=== PATIENT | female | born 1925 | race Caucasian/White ===

== ENCOUNTER 2015-12-02 13:51 | Outpatient (RCR) | payer MEDICARE, MEDICAID ==
[2015-12-18] MEDS ORDERED: SIMV40TA PO (12:49)
[2015-12-18] MEDS ORDERED: OMEP20TA7 PO (12:49)
[2015-12-18] MEDS ORDERED: POLY17PO6 PO (12:49)
[2015-12-18] MEDS ORDERED: METO-351 PO (12:49)
[2015-12-18] MEDS ORDERED: NAPR220T66 PO (12:49)
[2015-12-18] MEDS ORDERED: ASPI-983 PO (12:49)
[2015-12-18] MEDS ORDERED: ACET325T38 PO (12:49)
[2015-12-18] MEDS ORDERED: FLDR.1T PO (12:49)
[2015-12-18] MEDS ORDERED: SERT50TA2 PO (12:49)
[2015-12-19] MEDS ORDERED: APIX2.5T PO (07:10)
[2015-12-19] MEDS ORDERED: DIGO125T18 PO (07:10)
[2015-12-19] MEDS ORDERED: MAGN400T6 PO (13:51)
[2016-01-20] MEDS ORDERED: HYDR-757 PO (12:08)
[2016-01-20] MEDS ORDERED: CEFT1VIA58 IM (12:08)
[2016-02-21] MEDS ORDERED: TRAM50TA2 PO (10:22)
[2016-02-21] MEDS ORDERED: CARB15DR74 OU (10:22)
[2016-02-21] MEDS ORDERED: LACT-157 PO (10:22)
[2016-02-21] MEDS ORDERED: DONE5TAB30 PO (10:22)
[2016-02-21] MEDS ORDERED: MAGN400T6 PO (10:22)
[2016-02-21] MEDS ORDERED: DIGO125T PO (10:22)
[2016-02-21] MEDS ORDERED: CHLO500T2 PO (10:22)
[2016-02-21] MEDS ORDERED: POTA10TA6 PO (10:22)
[2016-02-21] MEDS ORDERED: APIX2.5T PO (10:22)
[2016-02-25] MEDS ORDERED: CHLO500T2 PO (08:56)
[2016-02-25] MEDS ORDERED: METO-270 PO (08:56)
[2016-02-25] MEDS ORDERED: HYDR-3812 PO (08:56)
[2016-02-25] MEDS ORDERED: LACT20SO2 PO (08:56)
[2016-02-25] MEDS ORDERED: TRAM50TA2 PO (08:56)
== END 2016-03-01 | disposition home or self-care (01) ==
LOC: CARD 13:51
PROVIDERS: ATTEND Internal Medicine
DX: I95.1 Orthostatic hypotension (principal); R55 Syncope and collapse
CPT/HCPCS: 93225; 93226

== ENCOUNTER 2016-03-09 14:47 | Emergency (ER) | payer MEDICAID, MEDICARE ==
[~2016-03-09] VITALS: Ht 170.2 cm; Wt 68.9 kg
[~2016-03-09 14:47] MED LIST: ACET325T38 PO; APIX2.5T PO; ASPI-983 PO; CARB15DR74 OU; CEFT1VIA58 IM; CHLO500T2 PO; DIGO125T PO; DIGO125T18 PO; DONE5TAB30 PO; FLDR.1T PO; HYDR-3812 PO; HYDR-757 PO; LACT-157 PO; LACT20SO2 PO; MAGN400T6 PO; METO-270 PO; METO-351 PO; NAPR220T66 PO; OMEP20TA7 PO; POLY17PO6 PO; POTA10TA6 PO; SERT50TA2 PO; SIMV40TA PO; TRAM50TA2 PO
--- OUTSIDE RECORDS SUMMARY | 2016-03-09 14:53 | XMS REPORT | Continuity of Care Document ---
Author Author [facility] Organization [facility] Address Unknown Phone Unavailable Care Team Providers Care Housekeeping Laundry Worker Name Role Phone ZEYNEP COTA MD PCP Insurance Providers Payer Name Policy Number Subscriber Name Relationship Wps Medicare [id number] Mark Warren 18 Self / Same As Patient Medicaid [place] [id number] Mark Warren 18 Self / Same As Patient Advance Directives Directive Response Recorded Date/Time Advance Directives Yes 02/20/16 5:18pm Health Care Power of Mfg [employer] DL WARREN (SON) 02/20/16 5:18pm Organ Donor No 02/20/16 5:18pm Resuscitation Status Full Code 02/20/16 5:18pm Chief Complaint and Reason for Visit Chief Complaint L HIP FX Reason for Visit Urinary tract infection Problems Active Problems Medical Problem Onset Date Status Encephalopathy acute Unknown Acute Fracture of left hip Unknown Acute Syncope Unknown Acute Urinary tract infection Unknown Acute Medications Current Home Medications Medication Dose Units Route Directions Days/Qty Instructions Start Date Polyethylene Glycol 3350 17 Gm 17 Gm Oral Daily 12/18/15 Acetaminophen 325 Mg 650 Mg Oral Every 4HRS as needed for Mild Pain/Temp TAKES 2 (325MG) TABLETS 12/18/15 Naproxen Sodium 220 Mg 220 Mg Oral Twice A Day as needed for Pain Fludrocortisone Acetate 0.1 Mg 0.1 Mg Oral Daily 12/18/15 Omeprazole 20 Mg 20 Mg Oral Daily 12/18/15 Donepezil Hcl 5 Mg 5 Mg Oral Daily 02/21/16 Lactose-Reduced Food 237 Ml 237 Ml Oral Three Times A Day 02/21/16 Carboxymethylcellulose Sodium 15 Ml 2 Drops Each Eye Twice A Day Apixaban 2.5 Mg 2.5 Mg Oral Twice A Day 02/21/16 Digoxin 125 Mcg 125 Mcg Oral Daily 02/21/16 Magnesium Oxide 400 Mg 400 Mg Oral Twice A Day 02/21/16 Potassium Chloride 10 Meq 10 Meq Oral Daily 02/21/16 Tramadol Hcl 50 Mg 50 Mg Oral Every 6 Hours as needed for Severe Pain 30 02/25/16 Chlorzoxazone 500 Mg 250 Mg Oral Three Times A Day 30 TAKES 1/2 (500MG) TABLET 02/25/16 Metoprolol Succinate 25 Mg 25 Mg Oral Twice A Day 30 Days 02/25/16 Hydrocodone/Acetaminophen 1 Each 1 Tab Oral Every 4HRS as needed for Moderate Pain 30 02/25/16 Lactulose 20 Gm/30 Ml 10 Gm Oral Twice A Day 30 Days 02/25/16 Past Home Medications Medication Directions Ordered Status Sertraline Hcl 50 Mg Tablet, 50 Mg Oral Daily 12/18/15 Discontinued Simvastatin 40 Mg Tablet, 40 Mg Oral Bedtime 12/18/15 Discontinued Aspirin 81 Mg Tablet.dr, 81 Mg Oral Daily 12/18/15 Discontinued Metoprolol Succinate 25 Mg Tab.er.24h, 12.5 Mg Oral Bedtime 12/18/15 Discontinued Digoxin 125 Mcg Tablet, 0.125 Mg Oral Daily 12/19/15 Discontinued Apixaban 2.5 Mg Tablet, 2.5 Mg Oral Twice A Day 12/19/15 Discontinued Magnesium Oxide 400 Mg Tablet, 400 Mg Oral Twice Daily After Meals 12/19/15 Discontinued Hydrocodone/Acetaminophen 1 Each Tablet, 0.5 Each Oral Every 6 Hours for Back 01/20/16 Discontinued Ceftriaxone Sodium 1 Gm Vial, 1 Gm Intramusc Daily 01/20/16 Discontinued Tramadol Hcl 50 Mg Tablet, 50 Mg Oral Every 6 Hours as needed for Severe Pain 02/21/16 Discontinued Chlorzoxazone 500 Mg Tablet, 250 Mg Oral Three Times A Day 02/21/16 Discontinued Social History Social History Problem Response Recorded Date/Time Alcohol Use Denies Use 02/20/2016 5:19pm Recreational Drug Use No 02/20/2016 5:19pm Recent Foreign Travel No 02/20/2016 5:25pm Recent Infectious Disease Exposure No 02/20/2016 5:25pm Smoking Status Never a Smoker 02/20/2016 5:21pm Type Used Cigarettes 01/20/2016 10:52am Recent Hopitalizations Y ED D/T FALLS 02/20/2016 5:19pm Query Response Start Date Stop Date Smoking Status Never a Smoker Hospital Discharge Instructions Patient Instructions Physician Instructions Patient Problems: Left hip fracture 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 Care Home Facility Order: Nursing Services, Reach Truck Operator-Evaluate & Treat, Physical Therapy-Evaluate & Treat, Speech Language-Evaluate & Treat Discharge Diet: Cardiac Diet Daily Activity as Tolerated: Yes Dorothea Law Feb 25, 2016 08:57 Care Plan Goal:: Strengthen Patient Problems: Left hip fractureDementia with behavior problems requiring sitterFallsAtrial fibrillation Plan of Care Discharge Date 02/25/16 10:20am Disposition 04 XFER ICF Instructions/Education Provided Atrial Fibrillation (DC) Prescriptions See Medication Section Care Plan and Goals See Discharge Instructions Section Functional Status Query Response Date Recorded Patient Orientation Person Confused Situation February 24, 2016 11:26am Patient Orientation Person Confused February 25, 2016 10:40am Comprehension Ability Understands Concepts February 25, 2016 8:20am Allergies, Adverse Reactions, Alerts Allergen Type Severity Reaction Status Last Updated Levofloxacin Allergy Unknown Active 02/20/16 Immunizations No immunization records. Vital Signs Acute Vital Signs Vital Response Date/Time Temperature (Fahrenheit) 96.4 degrees F (97.6 - 99.5) 02/25/2016 10:35am Temperature (Calculated Celsius) 35.69502 degrees C (36.4 - 37.5) 02/25/2016 8:09am Temperature Source Tympanic 02/25/2016 10:35am Pulse Rate (adult) 68 bpm (60 - 90) 02/25/2016 10:35am Respiratory Rate 20 bpm (12 - 24) 02/25/2016 10:35am O2 Sat by Pulse Oximetry 98 % (88 - 100) 02/25/2016 10:35am Blood Pressure 167/73 mm Hg 02/25/2016 10:35am Blood Pressure Mean 104 mm Hg 02/25/2016 8:09am Pain Numeric Pain Scale 3 02/25/2016 10:35am Height (Feet) 5 feet 02/20/2016 5:25pm Height (Inches) 6.00 inches 02/20/2016 5:25pm Height (Calculated Centimeters) 167.139777 cm 02/20/2016 5:25pm Weight (Pounds) 145 pounds 02/20/2016 5:25pm Weight (Ounces) 0.0 oz 02/20/2016 5:25pm Weight (Calculated Grams) 15593.89 gm 02/20/2016 5:25pm Weight (Calculated Kilograms) 65.123665 kilograms 02/20/2016 5:25pm Calculated BMI 23.4 02/20/2016 5:25pm Results Pending Laboratory Results Test Name Collection Date/Time Procedures Procedure Status Date Provider(s) Bipolar hemiarthroplasty of hip Completed 02/21/16 RYAN QUINTANA DO 48 hour Holter monitoring Completed 12/02/15 ANDREW SCHMID MD 48 hour Holter monitoring Completed 12/02/15 ANDREW SCHMID MD Tracing only of electrocardiogram Completed 02/20/16 DOROTHEA LAW DO Tracing only of electrocardiogram Completed 02/21/16 Mario CROUCH MD Encounters Encounter Location Arrival/Admit Date Discharge/Depart Date Attending Provider Discharged Inpatient [facility] 02/20/16 4:45pm 10:20am DOROTHEA LAW DO Registered Clinic [facility] 02/20/16 2:22pm ISAURO XIONG Registered Clinic [facility] 02/07/16 12:45pm ISAURO XIONG Discharged Recurring [facility] 12/02/15 1:51pm 11:59pm ANDREW SCHMID MD Recent Diagnosis Urinary tract infection
--- NOTE | 2016-03-09 16:48 | ED Fall/Injury ---
General Chief Complaint: Trauma-Non Activation Stated Complaint: CT Nursing Triage Note: Staff from [facility] report here for CT. Pt states fell on Wednesday and today. Call to staff at [facility] that state Isauro requests pt eval in ER for 2nd fall in week. No pain reported. Pt is on Eliquis Source: patient Exam Limitations: other (dementia) History of Present Illness Time seen by provider: 16:48 Initial Comments 89-year-old female patient presents to the emergency department at the request of this examiner due to 2 falls in the last 36-48 hours. Staff reports the fall today was unwitnessed and found patient on the floor. Unsure if patient had hit head as patient has dementia. Patient is on anticoagulants. Patient does have known T12 compression fracture and had recent left hip surgery for hip fracture. Patient is a approximately 2 weeks postop. Location Injury Occurred: NH Occurred: other (fell yesterday and today.) Injuries/Pain Location: no injury Context: unknown Loss of Consciousness: unsure Allergies and Home Medications Allergies Coded Allergies: levofloxacin (Verified Allergy, Unknown, 02/20/16) Home Medications Acetaminophen 325 Mg Tablet 650 MG PO Q4H PRN PRN MILD PAIN/TEMP (Reported) TAKES 2 (325MG) TABLETS Apixaban 2.5 Mg Tablet 2.5 MG PO BID (Reported) Carboxymethylcellulose Sodium 15 Ml Drops 2 DROPS OU BID (Reported) Chlorzoxazone 500 Mg Tablet #30 250 MG PO TID TAKES 1/2 (500MG) TABLET Prescribed by: KATHERINE LAW on 02/25/16 0856 Digoxin 125 Mcg Tablet 125 MCG PO DAILY (Reported) Donepezil HCl 5 Mg Tablet 5 MG PO DAILY (Reported) Fludrocortisone Acetate 0.1 Mg Tab 0.1 MG PO DAILY (Reported) Hydrocodone/Acetaminophen 1 Each Tablet #30 1 TAB PO Q4H PRN PRN MODERATE PAIN Prescribed by: KATHERINE LAW on 02/25/16 0856 Lactose-Reduced Food 237 Ml Liquid 237 ML PO TID (Reported) Lactulose 20 Gm/30 Ml Solution 30Days 10 GM PO BID Prescribed by: KATHERINE LAW on 02/25/16 0856 Magnesium Oxide 400 Mg Tablet 400 MG PO BID (Reported) Metoprolol Succinate 25 Mg Tab.er.24h 30Days 25 MG PO BID Prescribed by: KATHERINE LAW on 02/25/16 0856 Naproxen Sodium 220 Mg Tablet 220 MG PO BID PRN PRN PAIN (Reported) Omeprazole 20 Mg Tablet.dr 20 MG PO DAILY (Reported) Polyethylene Glycol 3350 17 Gm Powd.pack 17 GM PO DAILY (Reported) Potassium Chloride 10 Meq Tablet.er 10 MEQ PO DAILY (Reported) Tramadol HCl 50 Mg Tablet #30 50 MG PO Q6H PRN PRN SEVERE PAIN Prescribed by: KATHERINE LAW on 02/25/16 0856 Constitutional: no symptoms reported Eyes: No Symptoms Reported Respiratory: No cough, No short of breath Cardiovascular: No chest pain, No palpitations, No syncope Gastrointestinal: no symptoms reported Genitourinary: no symptoms reported Musculoskeletal: back pain (chronic back pain due to T12 compression fx (no different than usual pain per patient).)No joint pain, No neck pain Skin: no symptoms reported Psychiatric/Neurological: Denies Headache, Denies Numbness, Denies Paresthesia , Denies Seizure, Denies Tingling, Denies Weakness Other patient answered all ROS, but is noted to have dementia. All Other Systems Reviewed Negative Unless Noted: Yes (Negative excepted noted.) Past Wgiyuly-Tyvfxq-Rgkbaq Hx Patient Social History Alcohol Use: Denies Use Recreational Drug Use: No Smoking Status: Never a Smoker Type Used: Cigarettes Recent Foreign Travel: No Contact w/Someone Who Travel: No Recent Infectious Disease Expo: No Recent Hopitalizations: Yes (ED D/T FALLS) Physical Abuse Screen: No Sexual Abuse: No Immunizations Up To Date Date of Pneumonia Vaccine: Feb 17, 2015 Date of Influenza Vaccine: Nov 30, 2015 Surgeries HX Surgeries: Yes Surgeries: Eye Surgery, Gallbladder, Orthopedic, Thyroidectomy Respiratory Hx Respiratory Disorders: No Cardiovascular Hx Cardiac Disorders: Yes Cardiac Disorders: Atrial Fibrillation, Hypertension Neurological Hx Neurological Disorders: Yes Neurological Disorders: Dementia, Neuropathy Genitourinary Hx Genitourinary Disorders: No Gastrointestinal Hx Gastrointestinal Disorders: No Musculoskeletal Hx Musculoskeletal Disorders: Yes Musculoskeletal Disorders: Chronic Back Pain, Fractures (recent left hip fx (2 wks postop)) Endocrine Hx Endocrine Disorders: No HEENT HX ENT Disorders: No Cancer Hx Cancer: No Psychosocial Hx Psychiatric Problems: No Integumentary HX Skin/Integumentary Disorder: No Blood Transfusions Hx Blood Disorders: No Reviewed Nursing Assessment Reviewed/Agree w Nursing PMH: Yes Family Medical History Significant Family History: No Pertinent Family Hx Physical Exam Vital Signs Capillary Refill : Less Than 3 Seconds General Appearance: WD/WN no apparent distress HEENT: PERRL/EOMI normal ENT inspection TMs normal pharynx normal other ( normocephalic, atraumatic.) Neck: non-tender full range of motion supple normal inspection Cardiovascular: normal peripheral pulses regular rate, rhythm no murmur Respiratory: chest non-tender lungs clear normal breath sounds no respiratory distress Gastrointestinal: normal bowel sounds non tender softNo distended Back: normal inspection no vertebral tenderness Extremities: non-tender normal inspection (healing left lateral hip incision consistent with recent surgery without evidence of cellulitis.) normal capillary refill pelvis stable Neurologic/Psychiatric: licensed marriage and family therapist II-XII nml as tested no motor/sensory deficits alert normal mood/affect other (oriented to person. confused about time, place , and situation.) Skin: normal color warm/dry other (healing left lateral hip incision w/o evidence of swelling, erythema, or warmth.) Andrew Coma Score Best Eye Response: (4) Open Spontaneously Best Verbal Response: (4) Confused Conversation Best Motor Response: (6) Obeys Commands [place] Total: 14 Progress/Results/Core Measures Results/Orders My Orders Orders-ISAURO XIONG Ct Head/Cervical Spine Wo (03/09/16 16:55) Ct Thoracic/Lumbar Spine Wo (03/09/16 16:55) Pelvis (03/09/16 16:55) Vital Signs/I&O Blood Pressure Mean: 111 Diagnostic Imaging Diagonstic Imaging: CT Plain Films/CT/US/NM/MRI: c-spine, head Comments FINDINGS: CT head: There is stable moderate age-related cerebral volume loss and chronic small vessel ischemic changes. There is no midline shift or mass effect. There is no ischemia or hemorrhage. Bony calvarium, visualized paranasal sinuses and mastoids are normal. IMPRESSION: No acute intracranial abnormalities. No interval change. CT cervical spine: FINDINGS: Alignment of the cervical column is grossly unremarkable. There is no subluxation or fracture. Degenerative changes seen throughout the disc spaces and facet joints. Right-sided thyroid nodule is present. IMPRESSION: 1. No traumatic malalignment or fracture. 2. Incidental thyroid nodule on the right. Dictated on workstation # [id number] Reviewed: Reviewed by Me (radiology report reviewed by me) Diagonstic Imaging: CT Plain Films/CT/US/NM/MRI: other (thoracic and lumbar spine) Comments FINDINGS: The previous CT thoracic and lumbar spine exam performed on 2015 suggested an acute compression deformity of the superior endplate of T12. There is approximately 30% loss of height of the vertebral bodies at T12. On this exam, that compression deformity is again evident and does not seem to have changed significantly. There is no acute fracture of the thoracic or lumbar spine identified. The prior exam did note severe degenerative disc and bony disease at L4-5 and to a lesser degree at L1-2. Those degenerative changes are again evident and essentially no different. There is marked stenosis of the thecal sac at the L4-5 level with narrowing of the neural foramen bilaterally, particularly on the right. There is also moderate central stenosis at L3-4. There does not appear to be any significant central stenosis in the thoracic spine. There is no evidence for a paraspinal mass. The cysts associated with the left kidney seen previously are again evident. IMPRESSION: 1. The compression deformity of T12 noted on the prior exam is again evident and does not appear to have changed significantly. There is no acute bony abnormality identified. 2. If clinical concern regarding an underlying abnormality persists , then MRI would be recommended for further study. 3. The severe spinal stenosis at the L4-5 level seen previously is again evident and no different. Dictated on workstation # [id number] Reviewed: Reviewed by Me (radiology report reviewed by me) Diagonstic Imaging: Xray Plain Films/CT/US/NM/MRI: pelvis Comments FINDINGS: Single view of the pelvis demonstrates no fracture, dislocation, or osseous lesion. There is well-seated left hip arthroplasty. IMPRESSION: No fracture identified. Dictated on workstation # [id number] Reviewed: Reviewed by Me (radiology report reviewed by me) Departure Communication Progress Notes Diagnostic findings discussed with the patient and [facility] staff. Proceed with discharge to be [facility]. I will follow up with patient in 2 weeks for recheck as an outpatient. All return cautions were discussed with the patient and [facility] staff. Both voice understanding and agree with the treatment plan. Impression Impression: Primary Impression: Minor head injury without loss of consciousness Qualified Code: S09.90XA - Unspecified injury of head, initial encounter Additional Impression: Fall Qualified Code: W19.XXXA - Unspecified fall, initial encounter Disposition: 01 HOME, SELF-CARE Condition: Improved Departure-Patient Inst. Decision time for Depature: 18:02 Referrals: ZEYNEP COTA MD (PCP/Family) Primary Care Physician Patient Instructions: Minor Head Injury (DC), Preventing Falls in the Older Adult Add. Discharge Instructions: All discharge instructions reviewed with patient and/or family. Voiced understanding. Continue all current orders and medications. Ice pack for 20 minute intervals as needed for pain. I will see patient at the [facility] in 2 wks for recheck. Return to the emergency department for worsened pain, changes in behavior, slurred speech, vomiting, seizure, headache, or any other concerns. ISAURO XIONG Mar 09, 2016 16:48
--- NOTE | 2016-03-09 17:41 | Diagnostic Imaging Report ---
PROCEDURE: CT head and CT cervical spine without contrast. TECHNIQUE: Multiple contiguous axial images were obtained through the brain and cervical spine without the use of intravenous contrast. Sagittal and coronal reformations through the cervical spine were then performed. INDICATION: Fall, head trauma. COMPARISON: 01/20/2016. FINDINGS: CT head: There is stable moderate age-related cerebral volume loss and chronic small vessel ischemic changes. There is no midline shift or mass effect. There is no ischemia or hemorrhage. Bony calvarium, visualized paranasal sinuses and mastoids are normal. IMPRESSION: No acute intracranial abnormalities. No interval change. CT cervical spine: FINDINGS: Alignment of the cervical column is grossly unremarkable. There is no subluxation or fracture. Degenerative changes seen throughout the disc spaces and facet joints. Right-sided thyroid nodule is present. IMPRESSION: 1. No traumatic malalignment or fracture. 2. Incidental thyroid nodule on the right. Dictated by: Dictated on workstation # [id number]
--- NOTE | 2016-03-09 17:48 | Diagnostic Imaging Report ---
CT thoracic and lumbar spine. INDICATION: Fell, back pain. TECHNIQUE: Contiguous axial sections were taken through the thoracic and lumbar spine. Sagittal and coronal reconstructed images were also obtained. FINDINGS: The previous CT thoracic and lumbar spine exam performed on 02/07/2016 suggested an acute compression deformity of the superior endplate of T12. There was approximately 30% loss of height of the vertebral bodies at T12. On this exam, that compression deformity is again evident and does not seem to have changed significantly. There is no acute fracture of the thoracic or lumbar spine identified. The prior exam did note severe degenerative disc and bony disease at L4-5 and to a lesser degree at L1-2. Those degenerative changes are again evident and essentially no different. There is marked stenosis of the thecal sac at the L4-5 level with narrowing of the neural foramen bilaterally, particularly on the right. There is also moderate central stenosis at L3-4. There does not appear to be any significant central stenosis in the thoracic spine. There is no evidence for a paraspinal mass. The cysts associated with the left kidney seen previously are again evident. IMPRESSION: 1. The compression deformity of T12 noted on the prior exam is again evident and does not appear to have changed significantly. There is no acute bony abnormality identified. 2. If clinical concern regarding an underlying abnormality persists, then MRI would be recommended for further study. 3. The severe spinal stenosis at the L4-5 level seen previously is again evident and no different. Dictated by: Dictated on workstation # [id number]
--- NOTE | 2016-03-09 17:53 | Diagnostic Imaging Report ---
INDICATION: Fall COMPARISON: None FINDINGS: Single view of the pelvis demonstrates no fracture, dislocation, or osseous lesion. There is well-seated left hip arthroplasty. IMPRESSION: No fracture identified. Dictated by: Dictated on workstation # [id number]
[2016-03-09 18:16] VITALS: BP 181/68
== END 2016-03-09 18:16 ==
LOC: EDUNIT# 14:47 → ER 14:49
DX: S09.90XA Unspecified injury of head, initial encounter (principal); S39.92XA Unspecified injury of lower back, initial encounter; M47.812 Spondylosis without myelopathy or radiculopathy, cervical region; M48.06 Spinal stenosis, lumbar region; E04.1 Nontoxic single thyroid nodule; I10 Essential (primary) hypertension; Z79.01 Long term (current) use of anticoagulants; Z79.899 Other long term (current) drug therapy; Z96.642 Presence of left artificial hip joint; W01.0XXA Fall on same level from slipping, tripping and stumbling without subsequent striking against object, initial encounter; Y92.009 Unspecified place in unspecified non-institutional (private) residence as the place of occurrence of the external cause; Y99.8 Other external cause status
CPT/HCPCS: 70450; 72125; 72128; 72131; 72170

== ENCOUNTER → 2016-05-01 | Outpatient (CLI) | payer MEDICARE ==
[~2016-05-01] MED LIST changes: +AMPI500C9 PO
--- OUTSIDE RECORDS SUMMARY | 2016-05-01 11:20 | XMS REPORT | Continuity of Care Document ---
Author Author [facility] Organization [facility] Address Unknown Phone Unavailable Care Team Providers Care Professor Of Finance Name Role Phone ZEYNEP COTA MD PCP Insurance Providers Payer Name Policy Number Subscriber Name Relationship Wps Medicare [id number] Mark Warren 18 Self / Same As Patient Medicaid [place] [id number] Mark Warren 18 Self / Same As Patient Advance Directives Directive Response Recorded Date/Time Advance Directives Yes 02/20/16 5:18pm Health Care Power of Third Rigger Y DL WARREN (SON) 02/20/16 5:18pm Organ [...] of the above named patient's need for half-way care on a continuing basis for the conditions(s) for which he/she was receiving inpatient hospital services prior to his/her transfer to the SNF. Longterm Facility Order: Nursing Services, Glass Novelty Maker-Evaluate & Treat, Physical Therapy-Evaluate & Treat, Speech [...] - 99.5) 02/25/2016 10:35am Temperature (Calculated Celsius) 35.23313 degrees C (36.4 - 37.5) 02/25/2016 8:09am [...] 6.00 inches 02/20/2016 5:25pm Height (Calculated Centimeters) 167.362797 cm 02/20/2016 5:25pm Weight (Pounds) 145 pounds 02/20/2016 5:25pm Weight (Ounces) 0.0 oz 02/20/2016 5:25pm Weight (Calculated Grams) 43729.89 gm 02/20/2016 5:25pm Weight (Calculated Kilograms) 65.393249 kilograms 02/20/2016 5:25pm Calculated BMI 23.4 02/20/2016 [...] Discharge/Depart Date Attending Provider Discharged Inpatient [facility] 02/20/16 4:45pm 10:20am DOROTHEA LAW DO Registered Clinic [facility] 02/20/16 2:22pm ISAURO XIONG Registered Clinic [facility] 02/07/16 12:45pm ISAURO XIONG Discharged Recurring [facility] 12/02/15 1:51pm 11:59pm ANDREW SCHMID MD Recent Diagnosis Urinary tract infection
--- NOTE | 2016-05-01 11:43 | Diagnostic Imaging Report ---
AP and frog-lateral views of the left hip. INDICATION: Left hip pain. FINDINGS: There is left hip prosthesis in place in good position. No acute fracture is seen. There is moderate amount of fecal material seen in the rectum. IMPRESSION: Left hip replacement in good position. Dictated by: Dictated on workstation # [id number]
--- NOTE | 2016-05-01 11:48 | Diagnostic Imaging Report ---
AP view of the pelvis. INDICATION: Pelvic pain, left hip pain. FINDINGS: There is a left hip prosthesis in good position. The right hip is normal with no subluxation or dislocation; however, there is mild degenerative subchondral sclerosis. There are degenerative changes in the SI joints and lower lumbar spine as well. Moderate amount of fecal material seen in the rectum. When compared to 03/09/2016, no significant change is seen. IMPRESSION: Constipation. Left hip replacement in good position. Dictated by: Dictated on workstation # [id number]
== END ==
LOC: RAD 11:13
PROVIDERS: ATTEND Physician Assistant
DX: M25.552 Pain in left hip (principal); Z96.642 Presence of left artificial hip joint
CPT/HCPCS: 72170; 73502

== ENCOUNTER → 2016-05-11 | Outpatient (CLI) | payer MEDICARE ==
--- OUTSIDE RECORDS SUMMARY | 2016-05-11 14:09 | XMS REPORT | Continuity of Care Document ---
Author Author [facility] Organization [facility] Address Unknown Phone Unavailable Care Team Providers Care Computer Game Designer Name Role Phone ZEYNEP COTA MD PCP Insurance Providers Payer Name Policy Number Subscriber Name Relationship [employer] [id number] Mark Warren 18 Self / Same As Patient Medicaid [place] [id number] Mark Warren 20 Self / Same As Patient Advance Directives Directive Response Recorded Date/Time Advance Directives Yes 02/20/16 5:18pm Health Care Power of Trouble Lineman Y DL WARREN (SON) 02/20/16 5:18pm Organ [...] of the above named patient's need for senior living care on a continuing basis for the conditions(s) for which he/she was receiving inpatient hospital services prior to his/her transfer to the SNF. Senior Living Facility Order: Nursing Services, Music Critic-Evaluate & Treat, Physical Therapy-Evaluate & Treat, Speech [...] - 99.5) 02/25/2016 10:35am Temperature (Calculated Celsius) 35.86723 degrees C (36.4 - 37.5) 02/25/2016 8:09am [...] 6.00 inches 02/20/2016 5:25pm Height (Calculated Centimeters) 167.108734 cm 02/20/2016 5:25pm Weight (Pounds) 145 pounds 02/20/2016 5:25pm Weight (Ounces) 0.0 oz 02/20/2016 5:25pm Weight (Calculated Grams) 37503.89 gm 02/20/2016 5:25pm Weight (Calculated Kilograms) 65.641622 kilograms 02/20/2016 5:25pm Calculated BMI 23.4 02/20/2016 [...] Discharge/Depart Date Attending Provider Discharged Inpatient [facility] 02/20/16 4:45pm 10:20am DOROTHEA LAW DO Registered Clinic [facility] 02/20/16 2:22pm ISAURO XIONG Registered Clinic [facility] 02/07/16 12:45pm ISAURO XIONG Discharged Recurring [facility] 12/02/15 1:51pm 11:59pm ANDREW SCHMID MD Recent Diagnosis Urinary tract infection
--- NOTE | 2016-05-11 14:50 | Diagnostic Imaging Report ---
PROCEDURE: CT head and CT cervical spine without contrast. TECHNIQUE: Multiple contiguous axial images were obtained through the brain and cervical spine without the use of intravenous contrast. Sagittal and coronal reformations through the cervical spine were then performed. INDICATION: Fall. Trauma to head. COMPARISON: 03/09/2016 FINDINGS: CT HEAD: The ventricles and cortical sulci are diffusely prominent, compatible with age-related volume loss. There are confluent areas of abnormal, low attenuation in the periventricular white matter. This is consistent with chronic small vessel ischemic changes. There is no midline shift or mass-effect. No acute intra-axial hemorrhage is seen. There are no abnormal areas of increased or decreased density to suggest acute hemorrhage or edema. No extra-axial masses or collections are present. The bony calvarium is intact. The visualized paranasal sinuses are unremarkable. The mastoid air cells are clear. CT CERVICAL SPINE: Evaluation of the static alignment of the cervical spine demonstrates straightening of normal lordotic curvature. There is also slight grade 1 anterolisthesis of C4 on C5. Findings may be related to positioning and/or spasm, as well as underlying degenerative changes. There is no evidence of jumped facets. Vertebral body heights are maintained. There is no evidence of acute fracture. No bony fragments are seen within the spinal canal. There are multilevel degenerative changes consisting of intervertebral disc height loss with anterior and posterior disc osteophyte complex formations, as well as multilevel facet arthropathy. These changes appear greatest at the C4-C5 level. Pre-and paravertebral soft tissue structures are unremarkable. Note is made of partially visualized hypodense nodular lesion within the right thyroid lobe measuring 1.7 cm in diameter. Included views of the lung apices are clear. IMPRESSION: 1. No acute intracranial abnormality. No CT evidence of mass, acute infarct or intracranial hemorrhage. 2. Chronic small vessel ischemic changes in deep white matter. 3. No CT evidence of acute fracture or dislocation of the cervical spine. 4. Hypodense nodular lesion in the right thyroid lobe. Further evaluation with dedicated thyroid sonogram is recommended and could be performed on nonemergent basis. 5. Multilevel degenerative changes of the cervical spine, greatest at the C4-C5 level. Dictated by: Dictated on workstation # [id number]
== END ==
LOC: RAD 14:05
PROVIDERS: ATTEND Physician Assistant
DX: S09.90XA Unspecified injury of head, initial encounter (principal); W19.XXXA Unspecified fall, initial encounter; Y99.8 Other external cause status
CPT/HCPCS: 70450; 72125

== ENCOUNTER → 2016-06-08 | Outpatient (CLI) | payer MEDICARE ==
--- NOTE | 2016-06-08 11:09 | Diagnostic Imaging Report ---
EXAMINATION: 3 views of the sacrum and coccyx. INDICATION: Fall. FINDINGS: There is degenerative sclerosis seen in the right SI joint and to a lesser degree on the left side. Prominent sclerotic changes and vacuum phenomena around the lower lumbar spine discs are also noted. No fracture or dislocation is identified. There is a left hip prosthesis seen. IMPRESSION: Prominent degenerative changes. Dictated by: Dictated on workstation # [id number]
== END ==
LOC: RAD 10:14
PROVIDERS: ATTEND Nurse Practitioner Family
DX: M47.818 Spondylosis without myelopathy or radiculopathy, sacral and sacrococcygeal region (principal); M47.816 Spondylosis without myelopathy or radiculopathy, lumbar region; Z96.642 Presence of left artificial hip joint
CPT/HCPCS: 72220

== ENCOUNTER → 2016-06-18 | Outpatient (CLI) | payer MEDICARE ==
[2016-06-18 23:46] LABS: BILIRUBIN,URINE NEGATIVE (NEGATIVE); KETONES,URINE NEGATIVE (NEGATIVE); LEUKOCYTE ESTERASE ,URINE 2+ (NEGATIVE); NITRITE,URINE NEGATIVE (NEGATIVE); PH,URINE 7 (5-9); PROTEIN,URINE NEGATIVE (NEGATIVE); UROBILINOGEN,URINE NORMAL (NORMAL)
== END ==
LOC: CVS 23:37
PROVIDERS: ATTEND Nurse Practitioner
DX: R82.90 Unspecified abnormal findings in urine (principal)
CPT/HCPCS: 81000; 87088

== ENCOUNTER 2016-06-28 12:44 | Emergency (ER) | payer MEDICARE ==
[~2016-06-28] VITALS: Ht 170.2 cm; Wt 68.9 kg
[~2016-06-28 12:44] MED LIST changes: -AMPI500C9 PO
[2016-06-28 13:12] LABS: BASOPHILS % (AUTO) 0 % (0-10); EOSINOPHILS # (AUTO) 0.1 10^3/uL (0.0-0.3); EOSINOPHILS % (AUTO) 2 % (0-10); LYMPHOCYTES # (AUTO) 1.7 X 10^3 (1.0-4.0); LYMPHOCYTES % (AUTO) 25 % (12-44); MEAN CORPUSCULAR HEMOGLOBIN 30 PG (25-34); MEAN CORPUSCULAR HGB CONC 32 G/DL (32-36); MEAN CORPUSCULAR VOLUME 93 FL (80-99); MEAN PLATELET VOLUME 10.7 FL (7.4-10.4); MONOCYTES # (AUTO) 0.4 X 10^3 (0.0-1.0); MONOCYTES % (AUTO) 6 % (0-12); NEUTROPHILS # (AUTO) 4.6 X 10^3 (1.8-7.8); NEUTROPHILS % (AUTO) 68 % (42-75); PLATELET COUNT 233 10^3/uL (130-400); RED BLOOD COUNT 3.84 10^6/uL (4.35-5.85); RED CELL DISTRIBUTION WIDTH 16.8 % (10.0-14.5); WHITE BLOOD COUNT 6.8 10^3/uL (4.3-11.0)
[2016-06-28 13:29] LABS: ALANINE AMINOTRANSFERASE 9 U/L (0-55); ALBUMIN 3.4 G/DL (3.2-4.5); ANION GAP 8 MMOL/L (5-14); ASPARTATE AMINO TRANSFERASE 23 U/L (5-34); BILIRUBIN,TOTAL 0.3 MG/DL (0.1-1.0); BLOOD UREA NITROGEN 17 MG/DL (7-18); BUN/CREATININE RATIO 20; CALCIUM 8.6 MG/DL (8.5-10.1); CARBON DIOXIDE 29 MMOL/L (21-32); CHLORIDE 106 MMOL/L (98-107); CREATININE SERUM 0.87 MG/DL (0.60-1.30); GFR ESTIMATED > 60; GLUCOSE 107 MG/DL (70-105); SODIUM 143 MMOL/L (135-145); TOTAL PROTEIN 6.2 G/DL (6.4-8.2)
[2016-06-28 13:32] LABS: POTASSIUM 4.6 MMOL/L (3.6-5.0)
--- NOTE | 2016-06-28 13:42 | Diagnostic Imaging Report ---
PROCEDURE: CT head without contrast. TECHNIQUE: Multiple contiguous axial images were obtained through the brain without the use of intravenous contrast. INDICATION: Facial droop and altered gait. Comparison: 05/01/2016 Findings: No acute intracranial hemorrhage, mass effect or edema is demonstrated. There is moderate diffuse atrophy similar to the prior study. Ventricles are prominent and appear slightly more prominent than on the prior exam from April. Normal pressure hydrocephalus would be difficult to entirely exclude. Scattered areas of hypodensity in the periventricular white matter are similar to the prior study and likely related to chronic small vessel ischemic changes. No new or acute focal lesion is suspected. The paranasal sinuses and mastoids appear clear as visualized. IMPRESSION: 1. No evidence of an acute intracranial abnormality. 2. The ventricles are slightly prominent overall probably proportion to the degree of atrophy however they appear slightly more prominent than on the recent prior study from April. Normal pressure hydrocephalus would be difficult to entirely exclude. 3. Otherwise no significant interval change from the prior exam. Dictated by: Dictated on workstation # [id number]
--- NOTE | 2016-06-28 13:50 | Diagnostic Imaging Report ---
PROCEDURE: CT pelvis without contrast. TECHNIQUE: Multiple contiguous axial images were obtained through the pelvis without the use of intravenous contrast. Sagittal and coronal reformations were performed. INDICATION: Left hip pain. Recent prior surgery. Comparison: 05/01/2016, plain radiographs Findings: No acute fracture or osseous destructive process is suspected. There are postoperative changes of left hip arthroplasty. Streak artifact from the prosthetic component slightly limits evaluation. Prosthetic components appear seated normally within the acetabulum and femur without evidence of malalignment or other complicating process. No periprosthetic lucency is demonstrated. There are mild degenerative changes of the right hip. There are degenerative changes in the visualized lower lumbar spine. There is grade I degenerative anterolisthesis of L4 on L5. There is disc space narrowing and spurring. There is some foraminal stenosis bilaterally at L5/S1. At L4/L5 there is severe central and foraminal stenosis. No significant soft tissue abnormality is suspected. IMPRESSION: 1. Status post left hip arthroplasty without evidence of a complicating process. 2. No acute osseous abnormality seen in the pelvis. 3. Severe degenerative changes in the visualized lower lumbar spine with severe spinal stenosis at L4/L5. Dictated by: Dictated on workstation # [id number]
[2016-06-28 14:17] LABS: BILIRUBIN,URINE NEGATIVE (NEGATIVE); KETONES,URINE NEGATIVE (NEGATIVE); LEUKOCYTE ESTERASE ,URINE 3+ (NEGATIVE); NITRITE,URINE NEGATIVE (NEGATIVE); PH,URINE 7 (5-9); PROTEIN,URINE NEGATIVE (NEGATIVE); UROBILINOGEN,URINE NORMAL (NORMAL)
[2016-06-28] MEDS ORDERED: AMPI500C9 PO (15:08)
--- NOTE | 2016-06-28 15:11 | ED Neurological Problem ---
General Chief Complaint: Neurological Problems Stated Complaint: STROKE LIKE SYMPTOMS Nursing Triage Note: PT SENT TO ED BY [facility] FOR L SIDED WEAKNESS AND L SIDED FACIAL DROOP. UPON ARRIVAL TO ED, PT IS ALERT. SHE IS PLEASANTLY DEMENTED. FAMILY DENIES ANY DEFICITS AND REPORT THAT SHE HAS HAD L SIDED WEAKNESS SINCE PREVIOUS HIP FX IN JANUARY. Nursing Sepsis Screen: No Definite Risk Source: patient, family, RN/MD, EMS Exam Limitations: no limitations Allergies and Home Medications Allergies Coded Allergies: levofloxacin (Verified Allergy, Unknown, 02/20/16) Home Medications Acetaminophen 325 Mg Tablet, 650 MG PO Q4H PRN for MILD PAIN/TEMP, (Reported) TAKES 2 (325MG) TABLETS Apixaban 2.5 Mg Tablet, 2.5 MG PO BID, (Reported) Carboxymethylcellulose Sodium 15 Ml Drops, 2 DROPS OU BID, (Reported) Chlorzoxazone 500 Mg Tablet, 250 MG PO TID, #30 TAKES 1/2 (500MG) TABLET Prescribed by: KATHERINE LAW on 02/25/16 0856 Digoxin 125 Mcg Tablet, 125 MCG PO DAILY, (Reported) Donepezil HCl 5 Mg Tablet, 5 MG PO DAILY, (Reported) Fludrocortisone Acetate 0.1 Mg Tab, 0.1 MG PO DAILY, (Reported) Hydrocodone/Acetaminophen 1 Each Tablet, 1 TAB PO Q4H PRN for MODERATE PAIN, #30 Prescribed by: KATHERINE LAW on 02/25/16 0856 Lactose-Reduced Food 237 Ml Liquid, 237 ML PO TID, (Reported) Lactulose 20 Gm/30 Ml Solution, 10 GM PO BID for 30 Days Prescribed by: KATHERINE LAW on 02/25/16 0856 Magnesium Oxide 400 Mg Tablet, 400 MG PO BID, (Reported) Metoprolol Succinate 25 Mg Tab.er.24h, 25 MG PO BID for 30 Days Prescribed by: KATHERINE LAW on 02/25/16 0856 Naproxen Sodium 220 Mg Tablet, 220 MG PO BID PRN for PAIN, (Reported) Omeprazole 20 Mg Tablet.dr, 20 MG PO DAILY, (Reported) Polyethylene Glycol 3350 17 Gm Powd.pack, 17 GM PO DAILY, (Reported) Potassium Chloride 10 Meq Tablet.er, 10 MEQ PO DAILY, (Reported) Tramadol HCl 50 Mg Tablet, 50 MG PO Q6H PRN for SEVERE PAIN, #30 Prescribed by: KATHERINE LAW on 02/25/16 0856 Past Yfaximw-Khgxwt-Swzhvo Hx Patient Social History Alcohol Use: Denies Use Recreational Drug Use: No Smoking Status: Former Smoker Type Used: Cigarettes Recent Foreign Travel: No Contact w/Someone Who Travel: No Recent Infectious Disease Expo: No Recent Hopitalizations: Yes (ED D/T FALLS) Immunizations Up To Date Date of Pneumonia Vaccine: Feb 17, 2015 Date of Influenza Vaccine: Nov 30, 2015 Surgeries HX Surgeries: Yes Surgeries: Eye Surgery, Gallbladder, Orthopedic, Thyroidectomy Respiratory Hx Respiratory Disorders: No Cardiovascular Hx Cardiac Disorders: Yes Cardiac Disorders: Atrial Fibrillation, Hypertension Neurological Hx Neurological Disorders: Yes Neurological Disorders: Dementia, Neuropathy Genitourinary Hx Genitourinary Disorders: No Gastrointestinal Hx Gastrointestinal Disorders: No Musculoskeletal Hx Musculoskeletal Disorders: Yes Musculoskeletal Disorders: Chronic Back Pain, Fractures Endocrine Hx Endocrine Disorders: No HEENT HX ENT Disorders: No Cancer Hx Cancer: No Psychosocial Hx Psychiatric Problems: No Integumentary HX Skin/Integumentary Disorder: No Blood Transfusions Hx Blood Disorders: No Family Medical History Significant Family History: No Pertinent Family Hx Physical Exam Vital Signs Vital Sign - Last 12Hours 06/28/16 13:00 Temp 96.9 Pulse 64 Resp 18 B/P (MAP) 165/74 Pulse Ox 96 O2 Delivery Room Air Capillary Refill : Less Than 3 Seconds Stroke Stroke Thrombolytic Exclusion Age 18 or Over: Yes Acute intenal hemorrhage: No Oral Anticoagulants: Yes Progress/Results/Core Measures Results/Orders Lab Results Laboratory Tests Test 06/28/16 13:01 06/28/16 14:10 Range/Units White Blood Count 6.8 4.3-11.0 10^3/uL Red Blood Count 3.84 L 4.35-5.85 10^6/uL Hemoglobin 11.4 L 11.5-16.0 G/DL Hematocrit 36 35-52 % Mean Corpuscular Volume 93 80-99 FL Mean Corpuscular Hemoglobin 30 25-34 PG Mean Corpuscular Hemoglobin Concent 32 32-36 G/DL Red Cell Distribution Width 16.8 H 10.0-14.5 % Platelet Count 233 130-400 10^3/uL Mean Platelet Volume 10.7 H 7.4-10.4 FL Neutrophils (%) (Auto) 68 42-75 % Lymphocytes (%) (Auto) 25 12-44 % Monocytes (%) (Auto) 6 0-12 % Eosinophils (%) (Auto) 2 0-10 % Basophils (%) (Auto) 0 0-10 % Neutrophils # (Auto) 4.6 1.8-7.8 X 10^3 Lymphocytes # (Auto) 1.7 1.0-4.0 X 10^3 Monocytes # (Auto) 0.4 0.0-1.0 X 10^3 Eosinophils # (Auto) 0.1 0.0-0.3 10^3/uL Basophils # (Auto) 0.0 0.0-0.1 10^3/uL Sodium Level 143 135-145 MMOL/L Potassium Level 4.6 3.6-5.0 MMOL/L Chloride Level 106 98-107 MMOL/L Carbon Dioxide Level 29 21-32 MMOL/L Anion Gap 8 5-14 MMOL/L Blood Urea Nitrogen 17 7-18 MG/DL Creatinine 0.87 0.60-1.30 MG/DL Estimat Glomerular Filtration Rate > 60 BUN/Creatinine Ratio 20 Glucose Level 107 H 70-105 MG/DL Calcium Level 8.6 8.5-10.1 MG/DL Total Bilirubin 0.3 0.1-1.0 MG/DL Aspartate Amino Transf (AST/SGOT) 23 5-34 U/L Alanine Aminotransferase (ALT/SGPT) 9 0-55 U/L Alkaline Phosphatase 81 40-136 U/L Total Protein 6.2 L 6.4-8.2 G/DL Albumin 3.4 3.2-4.5 G/DL Urine Color YELLOW Urine Clarity CLEAR Urine pH 7 5-9 Urine Specific Basom 1.010 L 1.016-1.022 Urine Protein NEGATIVE NEGATIVE Urine Glucose (UA) NEGATIVE NEGATIVE Urine Ketones NEGATIVE NEGATIVE Urine Nitrite NEGATIVE NEGATIVE Urine Bilirubin NEGATIVE NEGATIVE Urine Urobilinogen NORMAL NORMAL MG/DL Urine Leukocyte Esterase 3+ H NEGATIVE Urine RBC (Auto) 1+ H NEGATIVE Urine RBC 2-5 H /HPF Urine WBC 5-10 H /HPF Urine Squamous Epithelial Cells 5-10 /HPF Urine Crystals PRESENT H /LPF Urine Amorphous Sediment LARGE LORRIE URATES H /LPF Urine Bacteria FEW H /HPF Urine Casts NONE /LPF Urine Mucus NEGATIVE /LPF Urine Culture Indicated YES My Orders Orders - ISAURO XIONG Ct Head Wo (06/28/16 12:56) Ct Pelvis Wo (06/28/16 12:56) Cbc With Automated Diff (06/28/16 13:03) Comprehensive Metabolic Panel (06/28/16 13:03) Ua Culture If Indicated (06/28/16 13:03) Urine Culture (06/28/16 14:10) Vital Signs/I&O Vital Sign - Last 12Hours 06/28/16 13:00 Temp 96.9 Pulse 64 Resp 18 B/P (MAP) 165/74 Pulse Ox 96 O2 Delivery Room Air Blood Pressure Mean: 104 Departure Impression Impression: Primary Impression: Urinary tract infection Disposition: XFER SNF Condition: Stable Departure-Patient Inst. Decision time for Depature: 15:05 Referrals: ZEYNEP COTA MD (PCP/Family) Primary Care Physician Patient Instructions: Urinary Tract Infection, Adult (DC) Add. Discharge Instructions: All discharge instructions reviewed with patient and/or family. Voiced understanding. Medications as directed. Drink plenty of fluids. Continue usual home medications. I will see patient in one week for recheck at [facility]. Return to the emergency department for headache, dizziness, changes in behavior, changes in vision, slurred speech, facial drooping, shortness of air, chest pain, abdominal pain, numbness, weakness, or any other concerns. Scripts Ampicillin Trihydrate (Ampicillin Trihydrate) 500 Mg Capsule 500 MG PO Q6H, #42 CAP 0 Refills Prov: ISAURO XIONG 06/28/16 ISAURO XIONG Jun 28, 2016 15:11
[2016-06-28 15:18] VITALS: BP 155/78
== END 2016-06-28 15:18 ==
LOC: EDUNIT# 12:44 → ER 12:45
DX: N39.0 Urinary tract infection, site not specified (principal); I10 Essential (primary) hypertension; I48.2 Chronic atrial fibrillation; F03.90 Unspecified dementia, unspecified severity, without behavioral disturbance, psychotic disturbance, mood disturbance, and anxiety; Z79.01 Long term (current) use of anticoagulants; Z87.891 Personal history of nicotine dependence; Z79.899 Other long term (current) drug therapy
CPT/HCPCS: 36415; 70450; 72192; 80053; 81000; 85025; 87088; 99283

== ENCOUNTER → 2016-08-01 | Outpatient (CLI) | payer MEDICARE ==
[~2016-08-01] MED LIST changes: +AMPI500C9 PO
[2016-08-01 09:28] LABS: BILIRUBIN,URINE NEGATIVE (NEGATIVE); KETONES,URINE NEGATIVE (NEGATIVE); LEUKOCYTE ESTERASE ,URINE 1+ (NEGATIVE); NITRITE,URINE NEGATIVE (NEGATIVE); PH,URINE 8 (5-9); PROTEIN,URINE NEGATIVE (NEGATIVE); UROBILINOGEN,URINE NORMAL (NORMAL)
[2016-08-01 09:37] LABS: WBC,URINE 0-2 /HPF
== END ==
LOC: CVS 09:22
PROVIDERS: ATTEND Physician Assistant
DX: N39.0 Urinary tract infection, site not specified (principal)
CPT/HCPCS: 81000

== ENCOUNTER → 2016-08-09 | Outpatient (CLI) | payer MEDICARE ==
[2016-08-09 22:06] LABS: BILIRUBIN,URINE NEGATIVE (NEGATIVE); KETONES,URINE NEGATIVE (NEGATIVE); LEUKOCYTE ESTERASE ,URINE 3+ (NEGATIVE); NITRITE,URINE NEGATIVE (NEGATIVE); PH,URINE 6 (5-9); PROTEIN,URINE 1+ (NEGATIVE); UROBILINOGEN,URINE NORMAL (NORMAL)
[2016-08-09 22:14] LABS: RENAL EPITHELIAL CELLS,URINE 0-2 /HPF; WBC,URINE >100 /HPF
== END ==
LOC: CVS 22:00
PROVIDERS: ATTEND Internal Medicine
DX: R41.0 Disorientation, unspecified (principal); F41.9 Anxiety disorder, unspecified; Z87.440 Personal history of urinary (tract) infections
CPT/HCPCS: 81000; 87088

== ENCOUNTER → 2016-09-29 | Outpatient (CLI) | payer MEDICARE, MEDICAID ==
--- NOTE | 2016-09-29 10:08 | Diagnostic Imaging Report ---
INDICATION: Fall. COMPARISON: None. FINDINGS: 3 radiographic views of the left hand were obtained. There is subtle transverse-oriented defect involving the proximal margins of the fifth metacarpal consistent with acute nondisplaced fracture. There is no evidence of intra-articular extension. Remaining osseous structures are intact. There are changes of osteoarthritis greatest involving the distal interphalangeal joint spaces and first carpometacarpal joint space. Otherwise, joint spaces are preserved. No unexpected radiopaque foreign bodies are seen. IMPRESSION: Acute nondisplaced transverse-oriented fracture of the fifth metacarpal as described above. Report was called/ faxed to office of Bairon Branch APRN, @ 10:04 AM/lars. Dictated by: Dictated on workstation # [id number]
--- NOTE | 2016-09-29 12:38 | Diagnostic Imaging Report ---
EXAMINATION: Two views of the left wrist. INDICATION: Fall. FINDINGS: There is a deformity, compatible with an old healed fracture, in the distal radius. No acute fracture. There is also deformity in the distal ulna, similarly indicative of an old injury, also seen. There is slight widening of the scapholunate interval. There is significant degenerative change at the scaphoid trapezium and the carpal/metacarpal joint at the base of the thumb. IMPRESSION: No acute process. Dictated by: Dictated on workstation # [id number]
== END ==
LOC: RAD 08:58
PROVIDERS: ATTEND Nurse Practitioner
DX: S62.357A Nondisplaced fracture of shaft of fifth metacarpal bone, left hand, initial encounter for closed fracture (principal); W19.XXXA Unspecified fall, initial encounter; Y99.8 Other external cause status
CPT/HCPCS: 73110; 73130

== ENCOUNTER → 2016-10-25 | Outpatient (CLI) | payer MEDICARE, MEDICAID ==
[2016-10-25 13:36] LABS: BASOPHILS % (AUTO) 0 % (0-10); EOSINOPHILS # (AUTO) 0.1 10^3/uL (0.0-0.3); EOSINOPHILS % (AUTO) 1 % (0-10); LYMPHOCYTES # (AUTO) 1.3 X 10^3 (1.0-4.0); LYMPHOCYTES % (AUTO) 14 % (12-44); MEAN CORPUSCULAR HEMOGLOBIN 31 PG (25-34); MEAN CORPUSCULAR HGB CONC 32 G/DL (32-36); MEAN CORPUSCULAR VOLUME 96 FL (80-99); MEAN PLATELET VOLUME 10.7 FL (7.4-10.4); MONOCYTES # (AUTO) 0.6 X 10^3 (0.0-1.0); MONOCYTES % (AUTO) 6 % (0-12); NEUTROPHILS # (AUTO) 7.1 X 10^3 (1.8-7.8); NEUTROPHILS % (AUTO) 79 % (42-75); PLATELET COUNT 216 10^3/uL (130-400); RED BLOOD COUNT 4.13 10^6/uL (4.35-5.85); RED CELL DISTRIBUTION WIDTH 13.8 % (10.0-14.5); WHITE BLOOD COUNT 9.1 10^3/uL (4.3-11.0)
[2016-10-25 13:36] LABS: BILIRUBIN,URINE NEGATIVE (NEGATIVE); KETONES,URINE NEGATIVE (NEGATIVE); LEUKOCYTE ESTERASE ,URINE NEGATIVE (NEGATIVE); NITRITE,URINE NEGATIVE (NEGATIVE); PH,URINE 8 (5-9); PROTEIN,URINE NEGATIVE (NEGATIVE); UROBILINOGEN,URINE NORMAL (NORMAL)
[2016-10-25 13:51] LABS: ALANINE AMINOTRANSFERASE 9 U/L (0-55); ALBUMIN 3.7 GM/DL (3.2-4.5); ANION GAP 10 MMOL/L (5-14); ASPARTATE AMINO TRANSFERASE 17 U/L (5-34); BILIRUBIN,TOTAL 0.5 MG/DL (0.1-1.0); BLOOD UREA NITROGEN 18 MG/DL (7-18); BUN/CREATININE RATIO 23; CALCIUM 9.2 MG/DL (8.5-10.1); CARBON DIOXIDE 29 MMOL/L (21-32); CHLORIDE 103 MMOL/L (98-107); GFR ESTIMATED > 60; GLUCOSE 96 MG/DL (70-105); SODIUM 142 MMOL/L (135-145); TOTAL PROTEIN 6.4 GM/DL (6.4-8.2)
== END ==
LOC: CVS 12:00
PROVIDERS: ATTEND Internal Medicine
DX: R53.83 Other fatigue (principal)
CPT/HCPCS: 80053; 81000; 85025

== ENCOUNTER → 2016-10-30 | Emergency (ER) | payer MEDICARE, MEDICAID ==
[~2016-10-30] VITALS: Ht 167.6 cm; Wt 59.0 kg
--- NOTE | 2016-10-30 19:34 | Diagnostic Imaging Report ---
INDICATION: Fall, pain. The study is interpreted in correlation with sacrococcygeal films May 2016. FINDINGS: There is a very large amount of colonic and rectosigmoidal stool. The left hip is replaced. The obturator rings and symphyses appeared intact. No fracture deformity identified. IMPRESSION: Likely substantial constipation, rectal impaction not excluded. No acute osseous abnormality apparent at this exam. Dictated by: Dictated on workstation # [id number]
--- NOTE | 2016-10-30 19:41 | Diagnostic Imaging Report ---
PROCEDURE: CT lumbar spine without contrast. TECHNIQUE: Multiple contiguous axial images were obtained through the lumbar spine without the use of intravenous contrast. Sagittal and coronal reformations were then performed. INDICATION: Fall, back pain. COMPARISON: March 09, 2016 FINDINGS: Chronic leftward convexity lumbar scoliotic curvature, stable from prior. Superior endplate compression fracture at T12 showed mild posterior cortical retropulsion, showed no progression from the previous exam. The lumbar vertebral statures are within normal limits. There is severe beal-lumbar spondylosis and facet arthrosis as a chronic finding. Degenerative changes resulting in moderate canal and moderate biforaminal stenosis at L3-L4 with severe canal stenosis and biforaminal narrowing at the L4-L5 level with mild L5-S1 canal and foraminal narrowing. These findings are unchanged from the previous. There is asymmetric transitional anatomy as a chronic finding across the lumbosacral junction. Anterolistheses grade 1 at L3 on L4 and L4 on L5, stable from prior. No lumbar fracture or paravertebral hemorrhage. IMPRESSION: Stable from prior, old unchanged retropulsed T12 fracture. Stable mild degenerative grade 1 listheses and leftward convexity scoliosis. Spondylosis and facet arthrosis with substantial degrees of canal and foraminal stenoses, stable. No acute-appearing abnormality. Dictated by: Dictated on workstation # [id number]
--- NOTE | 2016-10-30 19:41 | Diagnostic Imaging Report ---
PROCEDURE: CT head, face, and cervical spine without contrast. TECHNIQUE: Multiple contiguous axial images were obtained through the head, neck, and facial bones without the use of intravenous contrast. Sagittal and coronal reformations through the cervical spine and facial bones were also performed. INDICATION: Trauma, fall. COMPARISON: Comparison made with CT head June 28, 2016. FINDINGS: CT head: Advanced age-appropriate global volume loss is demonstrated. There also are chronic microvascular changes demonstrated throughout the white matter. These are not significantly changed from a prior CT of the head from June 28, 2016. There is no territorial loss of olvera-white differentiation. There is no evidence of acute hemorrhage. There is no mass effect or shift. There is no hydrocephalus. There is no abnormal extra-axial fluid collection. CT face: There is some slight irregularity demonstrated of the right nasal bones suggesting a nondisplaced right nasal bone fracture. The bony orbit appears intact. The intraorbital contents are unremarkable. There is no fracture evident of the maxillae, the zygomatic arches, the pterygoids, or the mandibles. There is no air-fluid level within the paranasal sinuses. There is no central skull base fracture. The mastoids and middle ears appear clear. CT cervical spine: Cervical spine demonstrates advanced multilevel cervical degenerative disc disease and facet arthropathy. There are advanced degenerative features of the craniocervical junction. The facets appear normally aligned without evidence of abnormal facet joint or disc space widening. There is no abnormal prevertebral soft tissue thickening. No acute cervical spine fracture is evident. The most significant central canal stenosis appears secondary to a posterior disc osteophyte complex at C6-7 and appears moderate to severe. There are also multiple levels of osseous neural foraminal stenosis due to uncovertebral spurring and facet arthropathy. The lung apices are clear. The soft tissues demonstrate large right thyroid nodule measuring up to 2.0 cm. There are carotid calcifications. IMPRESSION: 1. Advanced global volume loss with chronic microvascular changes within the white matter. There is no CT evidence of an acute traumatic intracranial abnormality. 2. There are findings suspect for nondisplaced right nasal bone fracture. No other facial fracture evident. Orbital contents are unremarkable. There is no blood evident within the paranasal sinuses. 3. Advanced degenerative features within the cervical spine without evidence of traumatic malalignment or acute cervical spine fracture. Most significant central canal stenosis is at the C6-7 level. 4. Large right thyroid nodule. 5. Atherosclerosis. Dictated by: Dictated on workstation # [id number]
--- NOTE | 2016-10-30 20:13 | ED Head Injury ---
General Chief Complaint: Trauma-Non Activation Stated Complaint: FALL Nursing Triage Note: to ER with [facility] staff with reports of fall from wheelchair. Patient reportedly fell forward out of her wheelchair, striking her face and bilateral knees on floor. Patient has small abrasion to nose and bilateral knee bruising. No other injury. Source: patient, family, caregiver ([facility] staff) Exam Limitations: other (dementia) History of Present Illness Location Injury Occurred: home Allergies and Home Medications Allergies Coded Allergies: levofloxacin (Verified Allergy, Unknown, 02/20/16) Home Medications Acetaminophen 325 Mg Tablet, 650 MG PO Q4H PRN for MILD PAIN/TEMP, (Reported) TAKES 2 (325MG) TABLETS Ampicillin Trihydrate 500 Mg Capsule, 500 MG PO Q6H, #42 Ref 0 Prescribed by: ISAURO XIONG on 06/28/16 1508 Apixaban 2.5 Mg Tablet, 2.5 MG PO BID, (Reported) Carboxymethylcellulose Sodium 15 Ml Drops, 2 DROPS OU BID, (Reported) Chlorzoxazone 500 Mg Tablet, 250 MG PO TID, #30 TAKES 1/2 (500MG) TABLET Prescribed by: KATHERINE LAW on 02/25/16 0856 Digoxin 125 Mcg Tablet, 125 MCG PO DAILY, (Reported) Donepezil HCl 5 Mg Tablet, 5 MG PO DAILY, (Reported) Fludrocortisone Acetate 0.1 Mg Tab, 0.1 MG PO DAILY, (Reported) Hydrocodone/Acetaminophen 1 Each Tablet, 1 TAB PO Q4H PRN for MODERATE PAIN, #30 Prescribed by: KATHERINE LAW on 02/25/16 0856 Lactose-Reduced Food 237 Ml Liquid, 237 ML PO TID, (Reported) Lactulose 20 Gm/30 Ml Solution, 10 GM PO BID for 30 Days Prescribed by: KATHERINE LAW on 02/25/16 0856 Magnesium Oxide 400 Mg Tablet, 400 MG PO BID, (Reported) Metoprolol Succinate 25 Mg Tab.er.24h, 25 MG PO BID for 30 Days Prescribed by: KATHERINE LAW on 02/25/16 0856 Naproxen Sodium 220 Mg Tablet, 220 MG PO BID PRN for PAIN, (Reported) Omeprazole 20 Mg Tablet.dr, 20 MG PO DAILY, (Reported) Polyethylene Glycol 3350 17 Gm Powd.pack, 17 GM PO DAILY, (Reported) Potassium Chloride 10 Meq Tablet.er, 10 MEQ PO DAILY, (Reported) Tramadol HCl 50 Mg Tablet, 50 MG PO Q6H PRN for SEVERE PAIN, #30 Prescribed by: KATHERINE LAW on 02/25/16 0856 Past Gaytljk-Kknnxa-Gperjj Hx Patient Social History Alcohol Use: Denies Use Recreational Drug Use: No Smoking Status: Never a Smoker Type Used: Cigarettes 2nd Hand Smoke Exposure: No Recent Foreign Travel: No Contact w/Someone Who Travel: No Recent Infectious Disease Expo: No Recent Hopitalizations: No Physical Abuse: No Sexual Abuse: No Mistreated: No Fear: No Immunizations Up To Date Tetanus Booster (TDap): Less than 5yrs PED Vaccines UTD: Yes Date of Pneumonia Vaccine: Feb 17, 2015 Date of Influenza Vaccine: Nov 30, 2015 Seasonal Allergies Seasonal Allergies: Yes Surgeries History of Surgeries: Yes Surgeries: Eye Surgery, Gallbladder, Orthopedic, Thyroidectomy Respiratory History of Respiratory Disorde: No Cardiovascular History of Cardiac Disorders: Yes Cardiac Disorders: Atrial Fibrillation, Hypertension Neurological History of Neurological Disord: Yes Neurological Disorders: Dementia, Neuropathy Gastrointestinal History of Gastrointestinal Di: No Musculoskeletal History of Musculoskeletal Dis: Yes Musculoskeletal Disorders: Chronic Back Pain, Fractures Endocrine History of Endocrine Disorders: No Cancer History of Cancer: No Psychosocial History of Psychiatric Problem: No Suicide Risk Score: 0 Integumentary History of Skin or Integumenta: No Blood Transfusions History of Blood Disorders: No Family Medical History Significant Family History: No Pertinent Family Hx Physical Exam Vital Signs Vital Sign - Last 12Hours 10/30/16 18:40 Temp 98.1 Pulse 62 Resp 18 B/P (MAP) 192/84 Pulse Ox 98 O2 Delivery Room Air Capillary Refill : Less Than 3 Seconds Progress/Results/Core Measures Results/Orders My Orders Orders - ISAURO XIONG Pelvis (10/30/16 18:44) Ct Head/Face/Cervical Wo (10/30/16 18:44) Ct Lumbar Spine Wo (10/30/16 18:44) Vital Signs/I&O Vital Sign - Last 12Hours 10/30/16 18:40 Temp 98.1 Pulse 62 Resp 18 B/P (MAP) 192/84 Pulse Ox 98 O2 Delivery Room Air Blood Pressure Mean: 120 Departure Impression Impression: Primary Impression: Nasal bone fracture Additional Impressions: Minor head injury without loss of consciousness Neck sprain chronic t12 compression fracture Fall Disposition: 03 XFER SNF Condition: Stable Departure-Patient Inst. Decision time for Depature: 20:11 Referrals: ZEYNEP COTA MD (PCP/Family) Primary Care Physician Patient Instructions: Minor Head Injury (DC), Nose Fracture (DC) Add. Discharge Instructions: All discharge instructions reviewed with patient and/or family. Voiced understanding. Increase tramadol to 1 tablet by mouth every 4 hours as needed for pain. Continue all other current orders except as described above. Ice pack for 20 minute intervals as needed for pain. No strenuous activity or activities that may result and head injury for 7 days. I will see patient next week for follow-up at via [facility]. Return to the emergency department immediately for worsened pain, changes in behavior, slurred speech, facial drooping, neck pain, back pain, shortness of air, chest pain, vomiting, seizure, numbness, weakness, or any other concerns. ISAURO XIONG Oct 30, 2016 20:13
[2016-10-30 20:20] VITALS: BP 188/76
== END ==
LOC: ER 18:05 → EDUNIT# 18:05
DX: S09.90XA Unspecified injury of head, initial encounter (principal); S02.2XXA Fracture of nasal bones, initial encounter for closed fracture; S13.4XXA Sprain of ligaments of cervical spine, initial encounter; M48.02 Spinal stenosis, cervical region; I48.91 Unspecified atrial fibrillation; I10 Essential (primary) hypertension; F03.90 Unspecified dementia, unspecified severity, without behavioral disturbance, psychotic disturbance, mood disturbance, and anxiety; Z79.01 Long term (current) use of anticoagulants; V00.811A Fall from moving wheelchair (powered), initial encounter; W22.09XA Striking against other stationary object, initial encounter; Z90.89 Acquired absence of other organs; Y92.009 Unspecified place in unspecified non-institutional (private) residence as the place of occurrence of the external cause

== ENCOUNTER → 2016-12-03 | Outpatient (CLI) | payer MEDICARE, MEDICAID ==
--- NOTE | 2016-12-03 16:14 | Diagnostic Imaging Report ---
Three views of the right knee. INDICATION: Right knee pain. FINDINGS: No fracture, dislocation or radiopaque foreign body. There is moderate joint space narrowing seen in the three compartments and tibn-it-[id number] osteophyte formation seen. Mild subchondral sclerotic changes also noted. There is suggestion of a tiny suprapatellar effusion. IMPRESSION: [id number] tricompartment osteoarthritis. Dictated by: Dictated on workstation # [id number]
== END ==
LOC: RAD 14:09
PROVIDERS: ATTEND Physician Assistant
DX: M17.11 Unilateral primary osteoarthritis, right knee (principal)
CPT/HCPCS: 73562

== ENCOUNTER → 2017-05-28 | Outpatient (CLI) | payer MEDICARE, MEDICAID ==
[~2017-05-28] MED LIST changes: +ACHD5005 PO; -HYDR-3812 PO; -METO-270 PO; +METO-387 PO
--- NOTE | 2017-05-28 11:15 | Diagnostic Imaging Report ---
INDICATION: Pain and swelling to the right knee. FINDINGS: Three views of the right knee demonstrate tricompartmental degenerative change with joint space narrowing and marginal spurring. No fracture, dislocation or effusion is identified. IMPRESSION: Tricompartmental degenerative change. No acute bony abnormality is detected. Dictated by: Dictated on workstation # [id number]
--- NOTE | 2017-05-28 11:15 | Diagnostic Imaging Report ---
INDICATION: Pain and swelling to the right hip. TIME OF EXAM: 11:04 AM FINDINGS: 2 views of the right hip demonstrate normal femoroacetabular alignment. The joint space is well maintained. The femoral head and neck are intact. No fractures are seen. Right-sided rami are intact. IMPRESSION: No acute bony abnormality is detected. Dictated by: Dictated on workstation # [id number]
== END ==
LOC: RAD 09:56
PROVIDERS: ATTEND Physician Assistant
DX: M17.11 Unilateral primary osteoarthritis, right knee (principal); M25.451 Effusion, right hip
CPT/HCPCS: 73502; 73562

== ENCOUNTER → 2017-08-28 | Outpatient (CLI) | payer MEDICARE, MEDICAID ==
[~2017-08-28] MED LIST changes: +CARB15DR OU; -CARB15DR74 OU
[2017-08-28 15:31] LABS: BILIRUBIN,URINE NEGATIVE (NEGATIVE); CLARITY,URINE VERY CLOUDY; COLOR,URINE YELLOW; GLUCOSE, URINE (UA) NEGATIVE (NEGATIVE); KETONES,URINE NEGATIVE (NEGATIVE); LEUKOCYTE ESTERASE ,URINE 3+ (NEGATIVE); NITRITE,URINE NEGATIVE (NEGATIVE); PH,URINE 5 (5-9); PROTEIN,URINE NEGATIVE (NEGATIVE); UROBILINOGEN,URINE NORMAL (NORMAL)
[2017-08-28 15:48] LABS: BACTERIA,URINE LARGE /HPF; RBC,URINE 0-2 /HPF; WBC,URINE 50-100 /HPF
== END ==
LOC: CVS 15:27
PROVIDERS: ATTEND Internal Medicine
DX: R82.99 Other abnormal findings in urine (principal); R41.82 Altered mental status, unspecified
CPT/HCPCS: 81000; 87088